=== PATIENT | male | born 1970 | race Caucasian/White ===

== ENCOUNTER 2017-01-23 11:40 | Emergency (ER) | payer OTHER ==
[~2017-01-23] VITALS: Ht 182.9 cm; Wt 90.9 kg
[2017-01-23 11:42] VITALS: BP 130/79; PULSE 93; RESP 16; O2SAT 99
--- NOTE | 2017-01-23 12:48 | ED.REPORT ---
HPI-Rash / Abscess Date of Service Jan 23, 2017 ED Provider: Delta Acosta PA-C Derek is an otherwise healthy 46-year-old male with chief complaint of possible spider bite on his right knee. He states that he was working on an engine while kneeling on an old carpet several days ago. He did not see a spider. He reports pain, redness swelling and discharge in the region. Admits to a remote history of a similar event. He denies a history of MRSA, diabetes, HIV, immunosuppression denies fever, chills, malaise, abdominal pain, vomiting Nursing Notes Stated Complaint: SPIDER BITE ON RT KNEE Chief Complaint: Skin Rash/Abscess Nursing Notes Reviewed: Yes Allergies: Coded Allergies: No Known Allergies (Unverified , 01/23/17) Scheduled Clindamycin (Clindamycin) 300 Mg Capsule 300 MG PO TID Sulfamethoxazole/Trimeth 800-160 mg (Bactrim DS) 1 Each Tablet 1 TABLET PO BID Scheduled PRN oxyCODONE (oxyCODONE) 5 Mg Capsule 5 MG PO Q4H PRN PRN For Pain General Time Seen by MD: 12:37 Chief Complaint Abscess Past Medical History Past Medical History Denies Review of Systems Review of Systems Note: Negative unless stated otherwise in history of present illness Physical Exam General: Well appearing, well developed, well nourished, no acute distress. Right leg: Tender inguinal lymph nodes. Right knee: 4cm Area of redness on the superior lateral aspect of the patella. Several pointing sites, which expressed purulent discharge with range of motion. Large area of surrounding mild erythema, extending from mid thigh to the ankle. Range of motion is intact and painless. Head: Atraumatic, normocephalic. Eyes: No scleral icterus or injection. No discharge. Vision grossly intact. ENT: Voice clear, hearing grossly intact. Respiratory: No respiratory distress, no increased work of breathing. Speaks in complete sentences. 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 Mild erythema on right leg extending superiorly from the 2 mid thigh and inferiorly to the ankle on the lateral aspect. Warm and dry. Neurological: Grossly nonfocal. Psychological: alert and oriented. Speech appropriate, linear and logical. Behavior appropriate. Initial Vital Signs Vital Signs (First) Date Time Temp Pulse Resp B/P Pulse Ox O2 Delivery O2 Flow Rate FiO2 01/23/17 11:42 36.4 93 16 130/79 99 Room Air Initial VS: Reviewed, Vital signs normal Interpretation & Diagnostics Lab Results Interpretation Result Diagram: 01/23/17 1320 01/23/17 1320 Test 01/23/17 13:20 White Blood Count 12.7th/mm3 (3.8-10.1) Red Blood Count 4.86mil/mm3 (4.40-5.80) Hemoglobin 14.8g/dL (13.8-17.2) Hematocrit 44.9% (41.0-50.0) Mean Corpuscular Volume 92.4fL (81-100) Mean Corpuscular Hemoglobin 30.5pg (27.0-35.0) Mean Corpuscular Hemoglobin Concent 33.0% (32.0-37.0) Red Cell Distribution Width 13.4% (12.3-15.4) Platelet Count 228bil/L (150-400) Neutrophils (%) (Auto) 73.7% (40-74) Lymphocytes (%) (Auto) 16.7% (14-46) Monocytes (%) (Auto) 7.2% (4-12) Eosinophils (%) (Auto) 1.9% (0-5) Basophils (%) (Auto) 0.3% (0-3) Sodium Level 135mEq/L (134-144) Potassium Level 4.6mEq/L (3.5-5.2) Chloride Level 96mEq/L (97-108) Carbon Dioxide Level 26mmol/L (18-29) Blood Urea Nitrogen 19mg/dL (6-24) Creatinine 0.98mg/dL (0.76-1.27) Estimat Glomerular Filtration Rate 88mL/min (>59) Glucose Level 120mg/dL (60-99) Lactic Acid Level 1.4mmol/L (0.4-2.0) Calcium Level 9.6mg/dL (8.5-10.1) Total Bilirubin 0.4mg/dL (0.0-1.2) Aspartate Amino Transf (AST/SGOT) 24U/L (0-50) Alanine Aminotransferase (ALT/SGPT) 38U/L (0-44) Alkaline Phosphatase 112U/L (25-150) Total Protein 8.4g/dL (6.4-8.4) Albumin 4.1g/dL (3.4-5.0) Procedures Incision & Drainage Abscess Time: 13:42 Procedure Performed by: Allied health pract Consent / Setup / Site Prep: Informed consent provided, Consent from patient , Hand hygiene observed Skin Preparation Agent: Hibiclens - Chlorhexidine Local Anesthesia: Lidocaine w epi 1% Incised Abscess with Scalpel: #11 Pus Drained: Small, Purulent discharge Post-Procedure / Complications: Culture obtained, Gram stain ordered, Dressing applied, No complications, Condition improved, Tolerated procedure well , Patient stable Discharge & Departure Impression: Primary Impression: Abscess Additional Impression: Cellulitis Disposition: Home Patient Instructions: Cellulitis (ED) Additional Instructions: Evaluation for right knee pain in the department. Skull examination reveals an abscess near your right knee as well as cellulitis in your leg. Lab tests are reassuring that she do not have a systemic infection. He will been treated with 2 kinds of IV antibiotics here in the emergency department and we have drained the abscess on your knee. I believe her stable and safe to be discharged home. I will write a prescription for 2 kinds of antibiotics: Bactrim DS to be taken twice a day for 10 days as well as clindamycin to be taken 3 times a day for 10 days. We have sent a sample from your wound for culturing. Please call in a few days to get the results and be sure you are on the right medications. Follow-up with your primary care provider in 3-4 days to be sure this is progressing as expected. The pain is best treated with 400 mg of ibuprofen (Advil, Motrin) every 6 hours , or 1000 mg of acetaminophen (Tylenol) every 6 hours. These drugs can be taken at the same time for more severe pain. I will write a prescription for a small amount of oxycodone to be taken every 4-6 hours for pain not controlled by these other medications. Please do not drive or drink alcohol within 4 hours of taking this medication. Return to the emergency department for any new or worsening symptoms including fever, feeling ill, abdominal pain, vomiting, increasing pain or redness, swelling in your leg or knee. Referrals: [facility] (PCP) Attending Statement Patient seen and examined with Mr. Acosta developing abscess just proximal to the knee. Moderate to severe psoriatic plaques. Expanding erythema down the entire calf. Labs are ordered minor elevation of white count no other signs of sepsis. Given IV antibiotics in the form of vancomycin and ceftriaxone. We will discharge home after I&D of the abscess with Septra and clindamycin follow -up if worse. copies to: [facility] Delta Acosta PA-C Jan 23, 2017 12:48 Harini Rodriguez MD Jan 23, 2017 14:33
[2017-01-23] MEDS ORDERED: 0.9% Sodium Chloride 1,000 ML IV ONE (13:04)
[2017-01-23] MEDS ORDERED: cefTRIAXone Inj 2,000 MG in Dextrose 5% Minibag Plus 50 ML IV ONE (13:05)
[2017-01-23] MEDS ORDERED: Vancomycin Dose per Pharmacist XX ONE (13:05)
[2017-01-23] MEDS ORDERED: LORazepam 1 mg Tablet PO ONE (13:05)
[2017-01-23] MEDS ORDERED: Vancomycin Inj 2,000 MG in 0.9% Sodium Chloride 500 ML IV ONE (13:15)
[2017-01-23 13:31] LABS: BASOPHILS % (AUTO) 0.3 % (0-3); EOSINOPHILS % (AUTO) 1.9 % (0-5); MONOCYTES % (AUTO) 7.2 % (4-12); Mean Corpuscular Hemoglobin 30.5 pg (27.0-35.0); Mean Corpuscular Volume 92.4 fL (81-100); NEUTROPHILS % (AUTO) 73.7 % (40-74); Platelet Count 228 bil/L (150-400)
[2017-01-23 15:00] VITALS: BP 104/56; PULSE 85; RESP 17; O2SAT 95
[2017-01-23] MEDS ORDERED: CLIN-78 PO (15:00)
[2017-01-23] MEDS ORDERED: SULF1TAB7 PO (15:00)
[2017-01-23] MEDS ORDERED: OXYC5CAP4 PO (16:08)
[2017-01-23 16:53] VITALS: BP 107/61; PULSE 79; RESP 17; O2SAT 98
== END 2017-01-23 17:14 | disposition home or self-care (01) ==
LOC: SED 11:40
DX: L02.415 Cutaneous abscess of right lower limb (principal); L03.115 Cellulitis of right lower limb
CPT/HCPCS: 10061; 80053; 83605; 85025; 87040; 96361; 96365; 96366; 96368; 96375; 99285; J0696; J1885; J3370; J7030; J7040